=== PATIENT | male | born 1970 | race African-American/Black ===

== ENCOUNTER 2021-05-05 13:50 | Emergency (ER) | payer OTHER, MEDICARE ==
[~2021-05-05 13:50] MED LIST: ROBAXIN500 M1 PO
[2021-05-05] MEDS ORDERED: BACLOFEN 10MG T10 MG PO (18:13)
== END 2021-05-05 18:40 | disposition home or self-care (01) ==
LOC: FER 13:50
DX: S39.012A Strain of muscle, fascia and tendon of lower back, initial encounter (principal); E11.9 Type 2 diabetes mellitus without complications; F17.210 Nicotine dependence, cigarettes, uncomplicated; Z79.4 Long term (current) use of insulin; Z88.6 Allergy status to analgesic agent; Z88.5 Allergy status to narcotic agent; V03.10XA Pedestrian on foot injured in collision with car, pick-up truck or van in traffic accident, initial encounter; Y92.410 Unspecified street and highway as the place of occurrence of the external cause
CPT/HCPCS: 72110